=== PATIENT | female | born 1975 | race Caucasian/White ===

== ENCOUNTER 2016-07-17 08:40 | Emergency (ER) | payer OTHER ==
[~2016-07-17 08:40] MED LIST: CLARITIN DPS10 MG PO; EFFEXOR DPS75 MG PO; KEFLEX-DPS500 MG PO; LUNESTA3 MG PO; NORCO 5-325 TA1 EACH PO; ULTRAM DPS50 MG PO; WOMEN'S DAILY1 EACH PO
--- NOTE | 2016-08-06 15:42 | ER ---
ADMIT: 07/17/2016 RM/LOC: ER [facility] MR#: [id number] [facility] [id number] [place], [place] [id number] VAIBHAV MACIAS [address] [place] [id number] Emergency Room Report SEX: F AGE: 41 : 1975 DATE: 07/17/2016 ADDENDUM: This patient comes to the ER because she has not been able to urinate. She has had lightheadedness and weakness. She has a lot of urgency and frequency. Her pain is right above the pubic symphysis and it is slightly tender to percussion of both flank area. Urinalysis did have +3 leukocyte esterase and 100 wbc's. I wrote a prescription for Bactrim and Pyridium. She should push fluids. Return to the ER if not keeping fluids down or fevers and vomiting. SILVIO Pierre / Nikko Tucker MD / modl JOB #: [id number] CC: Nikko Tucker MD, Attending Physician Kalani Coleman MD, Family Physician
== END 2016-07-17 09:53 | disposition home or self-care (01) ==
LOC: ER 08:40
DX: N39.0 Urinary tract infection, site not specified (principal); F32.9 Major depressive disorder, single episode, unspecified; Z79.899 Other long term (current) drug therapy